=== PATIENT | female | born 1945 | race Two or more races ===

== ENCOUNTER 2024-08-29 19:51 | Emergency (ER) | payer OTHER ==
[~2024-08-29] VITALS: Ht 162.6 cm; Wt 65.8 kg
[2024-08-29 20:00] VITALS: O2SAT 100
[2024-08-29] MEDS ORDERED: LEVOTHYROXINE25 MCG (20:13)
[2024-08-29] MEDS ORDERED: TRANDATE300 MG PO (20:13)
[2024-08-29] MEDS ORDERED: GABAPENTIN100 M2 PO (20:14)
[2024-08-29] MEDS ORDERED: ENALAPRILAT DIHYDRATE 2.5 MG/2 ML VIAL IV ONE (21:00)
[2024-08-29] MEDS ORDERED: CLONIDINE HCL 0.1 MG TABLET PO ONE (21:00)
[2024-08-29] MEDS ORDERED: FUROsemide 20 MG/2 ML VIAL IV ONE (21:00)
[2024-08-29 21:19] LABS: HEMATOCRIT 37.2 % (36.0-45.00); HEMOGLOBIN 12.1 g/dL (12.0-15.00); MEAN CELL VOLUME 82.7 fL (80.00-100.00); MEAN CORPUSCULAR HEMOGLOBIN 26.9 pg (27.00-32.0); MEAN CORPUSCULAR HGB CONC 32.6 g/dl (32.0-36.0); PLATELET COUNT 323 K/uL (150-450); RED CELL DISTRIBUTION WIDTH 14.3 % (11.5-14.5)
[2024-08-29 21:37] LABS: INR 1.02; PARTIAL THROMBOPLASTIN TIME 27.7 SECONDS (22.0-34.0); PROTHROMBIN TIME 11.1 SECONDS (9.0-11.5)
[2024-08-29 21:39] LABS: CALCIUM 10.1 mg/dL (8.5-10.1); CREATININE SERUM 0.8 mg/dL (0.55-1.02); GFR 69.55; POTASSIUM 4.9 mEq/L (3.5-5.1)
[2024-08-29 22:03] VITALS: BP 151/75
== END 2024-08-29 23:44 | disposition home or self-care (01) ==
LOC: ER 19:53
PROVIDERS: Emergency Medicine
DX: R53.81 Other malaise (principal); R42 Dizziness and giddiness
CPT/HCPCS: 36415; 70450; 71046; 93005; 93041; 96365; 99284; J1940; J3490